=== PATIENT | female | born 1935 | race Caucasian/White ===

== ENCOUNTER 2022-05-15 13:34 | Inpatient (IN) | payer MEDICARE, MEDICAID ==
[~2022-05-15] VITALS: Ht 152.4 cm; Wt 58.1 kg
[2022-05-15 15:40] LABS: BASOPHILS % 0.9 % (0.0-2.0); EOSINOPHILS % 1.2 % (0.0-5.0); HEMATOCRIT. 28.2 % (36.0-48.0); HEMOGLOBIN. 8.9 g/dL (12.0-16.0); MEAN CORPUSCULAR HEMOGLOBIN 27.5 pg (28.0-32.0); MEAN CORPUSCULAR VOLUME 87.4 fL (81.0-99.0); MEAN PLATELET VOLUME 10.5 fl (7.4-10.4); MONOCYTES % 6.1 % (2.0-8.0); NEUTROPHILS % 70.8 % (40.0-76.0); PLATELET 348 x1000/uL (130-400); RED BLOOD CELL COUNT 3.23 mill/uL (4.2-5.4); RED CELL DISTRIBUTION WIDTH 16.5 % (11.6-14.6)
[2022-05-15 15:57] LABS: CHLORIDE 104 mEq/L (98-107)
[2022-05-15 16:07] LABS: ETHANOL BLOOD < 10 mg/dL
[2022-05-15 16:25] LABS: CLARITY URINE CLEAR (CLEAR); COLOR URINE YELLOW (YELLOW); KETONES URINE NEGATIVE (NEGATIVE); LEUKOCYTE ESTERASE URINE NEGATIVE (NEGATIVE); NITRITE URINE NEGATIVE (NEGATIVE); OCCULT BLOOD URINE NEGATIVE (NEGATIVE); PH URINE 5.5 (4.5-8.0); PROTEIN URINE NEGATIVE (NEGATIVE); SPECIFIC GRAVITY URINE 1.009 (1.005-1.030); UROBILINOGEN URINE 0.2 E.U./dL (0.2-1.0)
[2022-05-15 17:06] LABS: *AMPHETAMINES SCREEN URINE NEGATIVE (NEGATIVE); *BARBITURATES SCREEN URINE NEGATIVE (NEGATIVE); *BENZODIAZEPINES SCREEN URINE NEGATIVE (NEGATIVE); *COCAINE SCREEN URINE NEGATIVE (NEGATIVE); CANNABINOID URINE SCREEN NEGATIVE (NEGATIVE); METHADONE URINE SCREEN NEGATIVE (NEGATIVE); OPIATES URINE SCREEN NEGATIVE (NEGATIVE); PHENCYCLIDINE URINE SCREEN NEGATIVE (NEGATIVE)
[2022-05-15] MEDS ORDERED: FUROSEMIDE 100MG/10ML VIAL IV NR (17:06)
[2022-05-15] MEDS ORDERED: DEXTROSE 50% WATER 50ML SYRINGE IV NR (17:15)
[2022-05-15] MEDS ORDERED: SODIUM POLYSTYRENE SULFONATE 15 G/60 ML BOT PO NR (17:15)
[2022-05-15] MEDS ORDERED: CALCIUM CHLORIDE 1GM/10ML SYR IV NR (17:15)
[2022-05-15] MEDS ORDERED: SODIUM BICARBONATE 8.4% 1 MEQ/ML 50ML SYR IV NR (17:15)
[2022-05-15] MEDS ORDERED: ALBUTEROL (0.083%) 2.5MG/3ML NEB HHN NR (17:15)
[2022-05-15] MEDS ORDERED: INSULIN REGULAR (HUMULIN R) 300UNITS/3ML VIAL IV NR (17:15)
[2022-05-15 22:11] LABS: BASOPHILS % 0.2 % (0.0-2.0); EOSINOPHILS % 0.2 % (0.0-5.0); HEMATOCRIT. 23.5 % (36.0-48.0); HEMOGLOBIN. 7.3 g/dL (12.0-16.0); LYMPHOCYTES % 16.3 % (20.0-50.0); MEAN CORPUSCULAR HEMOGLOBIN 26.8 pg (28.0-32.0); MEAN CORPUSCULAR VOLUME 86.5 fL (81.0-99.0); MEAN PLATELET VOLUME 9.9 fl (7.4-10.4); MONOCYTES % 7.8 % (2.0-8.0); NEUTROPHILS % 75.5 % (40.0-76.0); PLATELET 296 x1000/uL (130-400); RED BLOOD CELL COUNT 2.72 mill/uL (4.2-5.4)
[2022-05-15 22:18] LABS: CHLORIDE 104 mEq/L (98-107)
[2022-05-15] MEDS ORDERED: CEFEPIME 1,000 MG in DEXTROSE 5% WATER 50 ML IV SCH (23:45)
[2022-05-15] MEDS ORDERED: ONDANSETRON HCL 4MG/2ML INJ IV PRN (23:45)
[2022-05-16] VITALS (8 sets, daily range): BP systolic 94–150; BP diastolic 43–61
[2022-05-16] MEDS: ACETAMINOPHEN 325MG TABLET PO PRN ×2 (00:54→18:21)
[2022-05-16 04:32] LABS: CHLORIDE 106 mEq/L (98-107)
[2022-05-16 04:47] LABS: CREATINE KINASE 29 IU/L (26-192); CREATINE KINASE MB FRACTION 1.3 ng/mL (0.5-3.6)
[2022-05-16] MEDS: PANTOPRAZOLE SODIUM 40 MG/VIAL IV SCH (09:28)
[2022-05-16] MEDS ORDERED: PREG75CA MT (11:56)
[2022-05-16] MEDS ORDERED: CHOL200059 (11:56)
[2022-05-16] MEDS ORDERED: METF-416 MT (11:56)
[2022-05-16] MEDS ORDERED: ASPI-1497 MT (11:56)
[2022-05-16] MEDS ORDERED: FOLI0.8T42 MT (11:56)
[2022-05-16] MEDS ORDERED: ATOR20TA65 MT (11:56)
[2022-05-16] MEDS ORDERED: MIRT-89 MT (11:56)
[2022-05-16] MEDS ORDERED: METO25TA6 MT (11:56)
[2022-05-16] MEDS ORDERED: PENT400T16 MT (11:56)
[2022-05-16] MEDS ORDERED: PIOG15TA68 MT (11:56)
[2022-05-16] MEDS ORDERED: AMLO5TAB88 MT (11:56)
[2022-05-16] MEDS ORDERED: MELO-106 MT (11:56)
[2022-05-16] MEDS ORDERED: DEXTROSE 50% WATER 50ML SYRINGE IV PRN (14:30)
[2022-05-16] MEDS ORDERED: SODIUM CHLORIDE 0.9% 1,000 ML IV SCH (14:45)
[2022-05-16] MEDS ORDERED: DIPHENHYDRAMINE 25MG CAPSULE PO NR (15:00)
[2022-05-16] MEDS ORDERED: ACETAMINOPHEN 325MG TABLET PO NR (15:00)
[2022-05-16] MEDS: CEFEPIME 1,000 MG in DEXTROSE 5% WATER 50 ML IV SCH (15:49)
[2022-05-16] MEDS: DEXT 5%/0.9% NACL 1,000 ML IV SCH (15:50)
[2022-05-16 17:15] LABS: CREATINE KINASE MB FRACTION 1.3 ng/mL (0.5-3.6)
[2022-05-16] MEDS: BLOOD SUGAR DIAGNOSTIC STRIP TEST SCH ×2 (17:45→21:09)
[2022-05-16] MEDS: INSULIN LISPRO 100 UNITS/ML SUBCUT SCH ×2 (17:45→21:14)
[2022-05-16] MEDS ORDERED: ACETAMINOPHEN 500MG TABLET PO NR (21:37)
[2022-05-17] VITALS (8 sets, daily range): BP systolic 127–165; BP diastolic 42–88
[2022-05-17] MEDS: DEXT 5%/0.9% NACL 1,000 ML IV SCH ×2 (02:00→11:43)
[2022-05-17] MEDS: CEFEPIME 1,000 MG in DEXTROSE 5% WATER 50 ML IV SCH ×2 (05:02→17:29)
[2022-05-17 06:37] LABS: BASOPHILS % 0.6 % (0.0-2.0); EOSINOPHILS % 3.3 % (0.0-5.0); HEMATOCRIT. 28.4 % (36.0-48.0); HEMOGLOBIN. 9.3 g/dL (12.0-16.0); LYMPHOCYTES % 31.4 % (20.0-50.0); MEAN CORPUSCULAR HEMOGLOBIN 28.2 pg (28.0-32.0); MEAN CORPUSCULAR VOLUME 86.6 fL (81.0-99.0); MEAN PLATELET VOLUME 9.9 fl (7.4-10.4); MONOCYTES % 8.4 % (2.0-8.0); NEUTROPHILS % 56.3 % (40.0-76.0); PLATELET 245 x1000/uL (130-400); RED BLOOD CELL COUNT 3.28 mill/uL (4.2-5.4); RED CELL DISTRIBUTION WIDTH 16.3 % (11.6-14.6)
[2022-05-17] MEDS: BLOOD SUGAR DIAGNOSTIC STRIP TEST SCH ×4 (06:47→20:49)
[2022-05-17] MEDS: INSULIN LISPRO 100 UNITS/ML SUBCUT SCH ×4 (08:10→20:50)
[2022-05-17] MEDS: PANTOPRAZOLE SODIUM 40 MG/VIAL IV SCH (08:34)
[2022-05-17] MEDS: ENOXAPARIN 30MG/0.3ML SYR SUBCUT SCH (12:02)
[2022-05-17] MEDS: ACETAMINOPHEN 325MG TABLET PO PRN (20:48)
[2022-05-17] MEDS: METOPROLOL TARTRATE 25MG TABLET PO SCH (20:49)
[2022-05-18] VITALS: BP 146/51
[2022-05-18 04:00] VITALS: BP 155/58
[2022-05-18] MEDS: CEFEPIME 1,000 MG in DEXTROSE 5% WATER 50 ML IV SCH ×2 (04:51→17:32)
[2022-05-18] MEDS: ACETAMINOPHEN 325MG TABLET PO PRN (05:39)
[2022-05-18 06:20] LABS: BASOPHILS % 0.6 % (0.0-2.0); EOSINOPHILS % 5.5 % (0.0-5.0); HEMOGLOBIN. 9.9 g/dL (12.0-16.0); LYMPHOCYTES % 31.3 % (20.0-50.0); MEAN CORPUSCULAR HEMOGLOBIN 28.4 pg (28.0-32.0); MEAN CORPUSCULAR VOLUME 86.3 fL (81.0-99.0); MEAN PLATELET VOLUME 10.1 fl (7.4-10.4); NEUTROPHILS % 53.6 % (40.0-76.0); PLATELET 224 x1000/uL (130-400); RED BLOOD CELL COUNT 3.47 mill/uL (4.2-5.4); RED CELL DISTRIBUTION WIDTH 15.9 % (11.6-14.6)
[2022-05-18] MEDS: BLOOD SUGAR DIAGNOSTIC STRIP TEST SCH ×4 (06:37→20:53)
[2022-05-18] MEDS: INSULIN LISPRO 100 UNITS/ML SUBCUT SCH ×4 (06:38→20:53)
[2022-05-18 08:00] VITALS: BP 132/72
[2022-05-18 08:54] LABS: CHLORIDE 106 mEq/L (98-107)
[2022-05-18] MEDS: PANTOPRAZOLE SODIUM 40 MG/VIAL IV SCH (09:10)
[2022-05-18] MEDS: MEMANTINE HCL 10MG TABLET PO SCH ×2 (09:10→20:50)
[2022-05-18] MEDS: METOPROLOL TARTRATE 25MG TABLET PO SCH ×2 (09:10→20:50)
[2022-05-18] MEDS: ENOXAPARIN 30MG/0.3ML SYR SUBCUT SCH (11:52)
[2022-05-18 12:00] VITALS: BP 154/53
[2022-05-18] MEDS ORDERED: CIPR-264 MT (12:08)
[2022-05-18] MEDS ORDERED: MEMA10TA2 PO (12:08)
[2022-05-18 16:00] VITALS: BP 140/67
[2022-05-18] MEDS: MEGESTROL ACETATE 40MG TABLET PO SCH (17:26)
[2022-05-18] MEDS: SODIUM CHLORIDE 0.9% 1,000 ML IV SCH (17:27)
[2022-05-18 20:00] VITALS: BP 149/54
[2022-05-18] MEDS ORDERED: MIRTAZAPINE 15MG TABLET PO SCH (21:00)
[2022-05-18] MEDS ORDERED: AZITHROMYCIN 500 MG in DEXT 5% WATER 250 ML IV SCH (22:30)
[2022-05-19] VITALS: BP 149/54
[2022-05-19 04:00] VITALS: BP_SYST 151; BP_SYST 161; BP_DIAS 56; BP_DIAS 66
[2022-05-19] MEDS: CEFEPIME 1,000 MG in DEXTROSE 5% WATER 50 ML IV SCH (05:38)
[2022-05-19] MEDS: SODIUM CHLORIDE 0.9% 1,000 ML IV SCH (05:50)
[2022-05-19] MEDS: BLOOD SUGAR DIAGNOSTIC STRIP TEST SCH ×3 (06:50→17:06)
[2022-05-19] MEDS: INSULIN LISPRO 100 UNITS/ML SUBCUT SCH ×3 (06:50→17:07)
[2022-05-19 08:00] VITALS: BP 142/56
[2022-05-19] MEDS: MEGESTROL ACETATE 40MG TABLET PO SCH ×3 (08:48→17:09)
[2022-05-19] MEDS: MEMANTINE HCL 10MG TABLET PO SCH (08:48)
[2022-05-19] MEDS: METOPROLOL TARTRATE 25MG TABLET PO SCH (08:49)
[2022-05-19] MEDS: ENOXAPARIN 30MG/0.3ML SYR SUBCUT SCH (08:50)
[2022-05-19] MEDS: PANTOPRAZOLE SODIUM 40 MG/VIAL IV SCH (08:50)
[2022-05-19] MEDS ORDERED: AZITHROMYCIN 500MG in DEXTROSE 5% WATER 250ML IV SCH (09:00)
[2022-05-19] MEDS ORDERED: MEGE40TA5 MT (11:10)
[2022-05-19] MEDS ORDERED: MIRT-118 MT (11:11)
[2022-05-19 11:52] VITALS: BP 137/50
[2022-05-19 11:55] VITALS: BP 137/50
[2022-05-19 16:00] VITALS: BP 132/96
== END 2022-05-19 18:15 | disposition hospice, home (50) | DRG 871 ==
LOC: ER 13:57 → MICUSO 17:58 → 7WST 05-16
PROVIDERS: ADMIT Internal Medicine; ATTEND Internal Medicine
PROC: 30233N1 Transfusion of Nonautologous Red Blood Cells into Peripheral Vein, Percutaneous Approach (ICD-10-PCS; principal; 2022-05-16)
DX: A41.9 Sepsis, unspecified organism (principal); G93.41 Metabolic encephalopathy; J18.9 Pneumonia, unspecified organism; D64.9 Anemia, unspecified; R62.7 Adult failure to thrive; I10 Essential (primary) hypertension; E86.1 Hypovolemia; Z20.822 Contact with and (suspected) exposure to COVID-19; G30.9 Alzheimer's disease, unspecified; E87.5 Hyperkalemia; F02.80 Dementia in other diseases classified elsewhere, unspecified severity, without behavioral disturbance, psychotic disturbance, mood disturbance, and anxiety; Z79.899 Other long term (current) drug therapy; Z86.73 Personal history of transient ischemic attack (TIA), and cerebral infarction without residual deficits; Z68.25 Body mass index [BMI] 25.0-25.9, adult; E11.65 Type 2 diabetes mellitus with hyperglycemia
CPT/HCPCS: 36415; 71045; 80048; 80053; 80305; 80320; 81003; 82550; 82553; 82962; 83036; 83540; 83550; 83605; 84145; 84484; 85025; 86850; 86900; 86920; 87426; 93005; 93306; 93970; 94640; 97162; 99291; C9113; J0456; J0692; J1650; J1815; J1940; J3490; J7030; J7042; J7060; P9016; Q0163; A4315; G0480

== ENCOUNTER 2024-05-17 17:11 | Inpatient (IN) | payer MEDICARE, MEDICAID ==
[~2024-05-17] VITALS: Ht 137.2 cm; Wt 53.5 kg
[~2024-05-17 17:11] MED LIST: ALPR0.25 MT; AMLO5TAB88 PO; APIX2.5T PO; ASPI-1497 MT; ATOR20TA65 MT; CEPH500C2 MT; CHOL200059; FOLI0.8T42 MT; LINA5TAB MT; MEMA10TA20 MT; METO5TAB2 PO
[2024-05-17 19:08] LABS: CLARITY URINE CLEAR (CLEAR); COLOR URINE YELLOW (YELLOW); GLUCOSE URINE NEGATIVE (NEGATIVE); KETONES URINE NEGATIVE (NEGATIVE); LEUKOCYTE ESTERASE URINE 2+ (NEGATIVE); NITRITE URINE NEGATIVE (NEGATIVE); OCCULT BLOOD URINE NEGATIVE (NEGATIVE); PH URINE 5.5 (4.5-8.0); PROTEIN URINE TRACE (NEGATIVE); SPECIFIC GRAVITY URINE 1.017 (1.005-1.030); UROBILINOGEN URINE 0.2 E.U./dL (0.2-1.0)
[2024-05-17 19:22] LABS: BACTERIA URINE 1+; RBC URINE 0-2 /hpf (0-2); SQUAMOUS EPITHELIAL CELL URINE 1+ /lpf (RARE/1+); YEAST URINE 2+
[2024-05-17 19:27] LABS: *AMPHETAMINES SCREEN URINE NEGATIVE (NEGATIVE); *BARBITURATES SCREEN URINE NEGATIVE (NEGATIVE); *BENZODIAZEPINES SCREEN URINE PRESUMPTIVE POSITIVE (NEGATIVE); *COCAINE SCREEN URINE NEGATIVE (NEGATIVE); CANNABINOID URINE SCREEN NEGATIVE (NEGATIVE); ECSTASY MDMA SCREEN URINE NEGATIVE (NEGATIVE); METHADONE URINE SCREEN NEGATIVE (NEGATIVE); OPIATES URINE SCREEN NEGATIVE (NEGATIVE); PHENCYCLIDINE URINE SCREEN NEGATIVE (NEGATIVE)
[2024-05-17] MEDS ORDERED: CEFEPIME 1GM IN DEXT 5% 50ML IV ONE (19:30)
[2024-05-17 20:13] LABS: BASOPHILS % 0.5 % (0.0-2.0); EOSINOPHILS % 1.4 % (0.0-5.0); HEMATOCRIT. 28.1 % (36.0-48.0); HEMOGLOBIN. 8.8 g/dL (12.0-16.0); LYMPHOCYTES % 14.6 % (20.0-50.0); MEAN CORPUSCULAR HEMOGLOBIN 26.1 pg (28.0-32.0); MEAN CORPUSCULAR HGB CONC 31.3 g/dL (31.0-37.0); MEAN CORPUSCULAR VOLUME 83.4 fL (81.0-99.0); MEAN PLATELET VOLUME 10.4 fl (7.4-10.4); MONOCYTES % 9.3 % (2.0-8.0); NEUTROPHILS % 74.2 % (40.0-76.0); PLATELET 317 x1000/uL (130-400); RED BLOOD CELL COUNT 3.37 mill/uL (4.2-5.4); RED CELL DISTRIBUTION WIDTH 18.5 % (11.6-14.6); WHITE BLOOD COUNT 15.6 x1000/uL (4.5-11.0)
[2024-05-17] MEDS: CEFEPIME 1GM/50ML 50 ML IV NR (20:15)
[2024-05-17 20:23] LABS: CHLORIDE 97 mEq/L (98-107); POTASSIUM 3.5 mEq/L (3.5-5.1); SODIUM 131 mEq/L (136-145)
[2024-05-17 20:24] LABS: CALCIUM 10.2 mg/dL (8.7-10.4); CARBON DIOXIDE 25 mEq/L (21-32)
[2024-05-17 20:29] LABS: CREATININE 0.8 mg/dL (0.6-1.0); GLUCOSE 168 mg/dL (70-105); UREA NITROGEN BLOOD 33 mg/dL (9-23)
[2024-05-17 20:30] LABS: ALANINE AMINOTRANSFERASE 12 IU/L (10-49); ALBUMIN 3.6 g/dL (3.2-4.8); AMMONIA < 17 uMol/L (<32); ASPARTATE AMINOTRANSFERASE 17 IU/L (<34); BILIRUBIN DIRECT 0.1 mg/dL (<=3.0); BILIRUBIN TOTAL 0.3 mg/dL (0.1-1.0); ETHANOL BLOOD < 10 mg/dL (<10); PROTEIN TOTAL 6.7 g/dL (6.0-8.3)
[2024-05-17 20:31] LABS: ACETAMINOPHEN < 2 ug/mL (10-30)
[2024-05-17 20:33] LABS: THYROID STIMULATING HORMONE 2.06 uIU/mL (0.55-4.78)
[2024-05-17] MEDS: AZITHROMYCIN 500MG/250ML 250 ML IV NR (20:33)
[2024-05-17 20:46] LABS: TROPONIN I HIGH SENSITIVITY 278 ng/L (3.0-34)
[2024-05-17] MEDS ORDERED: ACETAMINOPHEN 325MG TABLET PO PRN (21:45)
[2024-05-17] MEDS ORDERED: DOCUSATE SODIUM 100MG CAPSULE PO PRN (21:45)
[2024-05-17] MEDS ORDERED: ONDANSETRON HCL 4MG/2ML INJ IV PRN (21:45)
[2024-05-17] MEDS ORDERED: IPRATROPIUM/ALBUTEROL 0.5-3(2.5)MG/3ML NEB HHN PRN (21:45)
[2024-05-17] MEDS ORDERED: MAGNESIUM/ALUMINUM HYDROXIDE/SIMETHICONE 30ML UDC PO PRN (21:45)
[2024-05-17] MEDS: SODIUM CHLORIDE 0.9% (SEPSIS BOLUS) IV NR (21:52)
[2024-05-17] MEDS: VANCOMYCIN 1G PREMIX 200 ML IV NR (21:52)
[2024-05-17] MEDS: ASPIRIN 300MG SUPP PR NR (22:26)
[2024-05-17] MEDS: ENOXAPARIN 60MG/0.6ML SYR SUBCUT SCH (22:26)
[2024-05-18] MEDS: SODIUM CHLORIDE 0.9% 1,000 ML IV SCH (03:45)
[2024-05-18] MEDS: CEFTRIAXONE 1GM/50ML 50 ML IV SCH (08:18)
[2024-05-18] MEDS: AZITHROMYCIN 500 MG in SODIUM CHLORIDE 0.9% 250 ML IV SCH (09:00)
[2024-05-18 16:05] VITALS: BP 137/72; PULSE 92; RESP 19; TEMP 36.2
[2024-05-18 16:22] VITALS: BP 137/72; PULSE 92; RESP 19; TEMP 36.2; O2SAT 100
[2024-05-18] MEDS ORDERED: METR-167 PO (19:23)
[2024-05-18] MEDS ORDERED: VANC250C19 PO (19:24)
[2024-05-18] MEDS ORDERED: METF-416 PO (19:24)
[2024-05-18 20:20] VITALS: BP 149/62; PULSE 99; RESP 18; TEMP 36.4; O2SAT 97
[2024-05-19 00:24] VITALS: BP 137/74; PULSE 90; RESP 17; TEMP 36.4; O2SAT 97
[2024-05-19 04:26] VITALS: BP 131/53; PULSE 98; RESP 17; TEMP 36.1; O2SAT 96
[2024-05-19] MEDS: CEFTRIAXONE 1GM/50ML 50 ML IV SCH (07:54)
[2024-05-19 08:10] VITALS: BP 149/63; PULSE 98; RESP 18; TEMP 36.6; O2SAT 100
[2024-05-19] MEDS: AZITHROMYCIN 500MG/250ML 250 ML IV SCH (09:14)
[2024-05-19 11:18] VITALS: BP 142/64; PULSE 86; RESP 19; TEMP 36.2; O2SAT 100
[2024-05-19] MEDS: ALPRAZOLAM 0.25 MG TABLET PO PRN (15:19)
[2024-05-19 15:47] VITALS: BP 115/52; PULSE 91; RESP 19; TEMP 36.7; O2SAT 100
[2024-05-19] MEDS: VANCOMYCIN 1G PREMIX 200 ML IV NR (16:21)
[2024-05-19 20:00] VITALS: BP 134/62; PULSE 94; RESP 18; TEMP 36.2; O2SAT 98
[2024-05-20] VITALS: BP 132/69; PULSE 95; RESP 18; TEMP 36.3; O2SAT 97
[2024-05-20 04:00] VITALS: BP 131/58; PULSE 89; RESP 18; TEMP 36.3; O2SAT 97
[2024-05-20 08:00] VITALS: BP 133/60; PULSE 89; RESP 18; TEMP 36.6; O2SAT 99
[2024-05-20 12:00] VITALS: BP 119/56; PULSE 94; RESP 18; TEMP 36.4; O2SAT 100
[2024-05-20] MEDS: VANCOMYCIN 500MG/100ML IV SCH (13:05)
[2024-05-20 16:00] VITALS: BP 136/48; PULSE 100; RESP 20; TEMP 36.3; O2SAT 99
[2024-05-20 17:33] LABS: CARBON DIOXIDE 23 mEq/L (21-32); CHLORIDE 111 mEq/L (98-107); POTASSIUM 3.3 mEq/L (3.5-5.1); SODIUM 140 mEq/L (136-145)
[2024-05-20 17:34] LABS: CALCIUM 8.2 mg/dL (8.7-10.4)
[2024-05-20 17:39] LABS: CREATININE 0.7 mg/dL (0.6-1.0); GLUCOSE 317 mg/dL (70-105); UREA NITROGEN BLOOD 13 mg/dL (9-23)
[2024-05-20 18:40] LABS: MEAN CORPUSCULAR HEMOGLOBIN 25.9 pg (28.0-32.0); MEAN CORPUSCULAR VOLUME 83.7 fL (81.0-99.0); MEAN PLATELET VOLUME 9.8 fl (7.4-10.4); PLATELET 295 x1000/uL (130-400); RED BLOOD CELL COUNT 2.64 mill/uL (4.2-5.4); RED CELL DISTRIBUTION WIDTH 19.2 % (11.6-14.6); WHITE BLOOD COUNT 9.5 x1000/uL (4.5-11.0)
[2024-05-20 18:44] LABS: DIFFERENTIAL COMMENT 1
[2024-05-20 18:49] LABS: HEMATOCRIT. 22.1 % (36.0-48.0); HEMOGLOBIN. 6.9 g/dL (12.0-16.0)
[2024-05-20] MEDS: MAGNESIUM 4 G PREMIX 100 ML IV NR (18:49)
[2024-05-20 20:00] VITALS: BP 131/44; PULSE 106; RESP 19; TEMP 37.1; O2SAT 100
[2024-05-20] MEDS: POTASSIUM CHLORIDE 20 MEQ in DEXT 5% WATER 100 ML IV SCH (20:01)
[2024-05-20 21:01] LABS: ANISOCYTOSIS 1+; HYPOCHROMASIA 1+; MICROCYTOSIS 1+; PLATELET ESTIMATE NORMAL
[2024-05-21] VITALS (14 sets, daily range): BP systolic 113–178; BP diastolic 43–87; PULSE 65–148; RESP 14–26; TEMP 36.1–38.7; O2SAT 94–100
[2024-05-21 00:16] LABS: IRON 17 ug/dL (50-170)
[2024-05-21 00:19] LABS: TOTAL IRON BINDING CAPACITY 248 ug/dl (250-425)
[2024-05-21] MEDS: AMLODIPINE 5MG TABLET PO SCH (00:43)
[2024-05-21 07:32] LABS: CALCIUM 8.4 mg/dL (8.7-10.4); CARBON DIOXIDE 26 mEq/L (21-32); CHLORIDE 110 mEq/L (98-107); POTASSIUM 4.3 mEq/L (3.5-5.1); SODIUM 144 mEq/L (136-145)
[2024-05-21 07:37] LABS: CREATININE 0.7 mg/dL (0.6-1.0)
[2024-05-21 07:38] LABS: UREA NITROGEN BLOOD 13 mg/dL (9-23)
[2024-05-21 07:47] LABS: HEMOGLOBIN. 10.2 g/dL (12.0-16.0); MEAN CORPUSCULAR HEMOGLOBIN 27.1 pg (28.0-32.0); MEAN CORPUSCULAR HGB CONC 30.8 g/dL (31.0-37.0); PLATELET 315 x1000/uL (130-400); RED BLOOD CELL COUNT 3.76 mill/uL (4.2-5.4); RED CELL DISTRIBUTION WIDTH 18.4 % (11.6-14.6); WHITE BLOOD COUNT 13.9 x1000/uL (4.5-11.0)
[2024-05-21 07:58] LABS: DIFFERENTIAL COMMENT 1
[2024-05-21] MEDS: ATORVASTATIN CALCIUM 20MG TABLET GT SCH (08:22)
[2024-05-21 08:36] LABS: GLUCOSE 403 mg/dL (70-105)
[2024-05-21] MEDS ORDERED: METO-539 MT (10:47)
[2024-05-21] MEDS ORDERED: DEXTROSE 50% WATER 50ML SYRINGE IV PRN (11:00)
[2024-05-21] MEDS: INSULIN LISPRO 100 UNITS/ML SUBCUT SCH (11:35)
[2024-05-21] MEDS: BLOOD SUGAR DIAGNOSTIC STRIP TEST SCH (11:36)
[2024-05-21] MEDS: METOPROLOL TARTRATE 50MG TABLET PO SCH (11:36)
[2024-05-21] MEDS: METOPROLOL TARTRATE 25MG TABLET PO SCH (16:15)
[2024-05-21 16:53] LABS: ANISOCYTOSIS 1+; PLATELET ESTIMATE NORMAL
[2024-05-21] MEDS: VANCOMYCIN 750MG PREMIX 150 ML IV SCH (17:22)
[2024-05-21] MEDS: IPRATROPIUM/ALBUTEROL 0.5-3(2.5)MG/3ML NEB HHN SCH (21:31)
[2024-05-21] MEDS: ACETYLCYSTEINE 200MG/ML 20% VIAL 4ML INH SCH (21:31)
[2024-05-21] MEDS: ACETAMINOPHEN 650MG/20.3ML UDC GT PRN (21:45)
[2024-05-22] VITALS (10 sets, daily range): BP systolic 118–161; BP diastolic 55–89; PULSE 68–100; RESP 15–20; TEMP 35.7–38.2; O2SAT 95–99
[2024-05-22] MEDS: DOXYCYCLINE 100MG/100ML 100 ML IV SCH (06:00)
[2024-05-22 07:10] LABS: CARBON DIOXIDE 25 mEq/L (21-32); CHLORIDE 111 mEq/L (98-107); POTASSIUM 3.8 mEq/L (3.5-5.1); SODIUM 147 mEq/L (136-145)
[2024-05-22 07:11] LABS: CALCIUM 9.2 mg/dL (8.7-10.4)
[2024-05-22 07:15] LABS: CREATININE 0.7 mg/dL (0.6-1.0)
[2024-05-22 07:16] LABS: GLUCOSE 215 mg/dL (70-105); UREA NITROGEN BLOOD 15 mg/dL (9-23)
[2024-05-22 08:15] LABS: BASOPHILS % 0.2 % (0.0-2.0); EOSINOPHILS % 0.1 % (0.0-5.0); HEMATOCRIT. 29.8 % (36.0-48.0); HEMOGLOBIN. 9.6 g/dL (12.0-16.0); LYMPHOCYTES % 15.2 % (20.0-50.0); MEAN CORPUSCULAR HEMOGLOBIN 27.8 pg (28.0-32.0); MEAN CORPUSCULAR HGB CONC 32.2 g/dL (31.0-37.0); MEAN CORPUSCULAR VOLUME 86.2 fL (81.0-99.0); MONOCYTES % 7.5 % (2.0-8.0); PLATELET 280 x1000/uL (130-400); RED BLOOD CELL COUNT 3.46 mill/uL (4.2-5.4); RED CELL DISTRIBUTION WIDTH 18.5 % (11.6-14.6); WHITE BLOOD COUNT 12.3 x1000/uL (4.5-11.0)
[2024-05-22] MEDS ORDERED: LIDOCAINE HCL 1% 10 MG/ML 10ML VIAL ONE ×2 (08:42→09:39)
[2024-05-22] MEDS ORDERED: MONTELUKAST SODIUM 10MG TABLET PO SCH (17:00)
[2024-05-23] VITALS (12 sets, daily range): BP systolic 125–152; BP diastolic 38–80; PULSE 83–115; RESP 18–20; TEMP 35.2–37.3; O2SAT 93–98
[2024-05-23 06:37] LABS: BASOPHILS % 0.4 % (0.0-2.0); EOSINOPHILS % 0.2 % (0.0-5.0); HEMATOCRIT. 29.2 % (36.0-48.0); HEMOGLOBIN. 9.4 g/dL (12.0-16.0); LYMPHOCYTES % 12.4 % (20.0-50.0); MEAN CORPUSCULAR HEMOGLOBIN 27.4 pg (28.0-32.0); MEAN CORPUSCULAR HGB CONC 32.1 g/dL (31.0-37.0); MEAN CORPUSCULAR VOLUME 85.2 fL (81.0-99.0); MEAN PLATELET VOLUME 9.9 fl (7.4-10.4); MONOCYTES % 6.3 % (2.0-8.0); NEUTROPHILS % 80.7 % (40.0-76.0); PLATELET 253 x1000/uL (130-400); RED BLOOD CELL COUNT 3.43 mill/uL (4.2-5.4); RED CELL DISTRIBUTION WIDTH 18.9 % (11.6-14.6); WHITE BLOOD COUNT 10.1 x1000/uL (4.5-11.0)
[2024-05-23 06:58] LABS: CHLORIDE 110 mEq/L (98-107); POTASSIUM 3.7 mEq/L (3.5-5.1); SODIUM 146 mEq/L (136-145)
[2024-05-23 06:59] LABS: CALCIUM 9.1 mg/dL (8.7-10.4); CARBON DIOXIDE 25 mEq/L (21-32)
[2024-05-23 07:04] LABS: CREATININE 0.6 mg/dL (0.6-1.0); GLUCOSE 244 mg/dL (70-105); UREA NITROGEN BLOOD 17 mg/dL (9-23)
[2024-05-23 15:33] LABS: BG BASE EXCESS 1.8 mmol/L (-2.0-3.0); BG CARBOXYHEMOGLOBIN 0.4 % (0.5-1.5); BG DEOXYHEMOGLOBIN 11.5 % (0.0-5.0); BG FRACTION INSPIRED OXYGEN 21; BG HCO3 ACT 24.5 mmol/L (21.0-28.0); BG METHEMOGLOBIN 0.3 % (0.5-1.5); BG OXYGEN SATURATION 88.4 % (94.0-98.0); BG OXYHEMOGLOBIN 87.8 % (94.0-98.0); BG PCO2 31.3 mmHg (32.0-45.0); BG PH 7.511 (7.350-7.450); BG PO2 52.5 mmHg (83.0-108.0); BG SAMPLE SITE RIGHT RADIAL; BG TOTAL HEMOGLOBIN 9.7 g/dL (12.0-16.0); BG VENT MODE ROOM AIR
[2024-05-23] MEDS: ATORVASTATIN CALCIUM 40MG TABLET GT SCH (21:59)
[2024-05-23] MEDS: METOPROLOL TARTRATE 50MG TABLET PO SCH (22:00)
[2024-05-24] VITALS (12 sets, daily range): BP systolic 100–177; BP diastolic 48–86; PULSE 74–103; RESP 16–22; TEMP 35.9–37.6; O2SAT 92–98
[2024-05-24] MEDS: CLONIDINE 0.1MG TABLET PO PRN (00:36)
[2024-05-24] MEDS: GUAIFENESIN 200MG/10ML SUGAR FREE UDC PO PRN (00:36)
[2024-05-24] MEDS: ACETAMINOPHEN 325MG TABLET PO PRN (00:37)
[2024-05-24] MEDS: DEXAMETHASONE 4MG/ML 1ML VIAL IV SCH (08:55)
[2024-05-24] MEDS: DOXYCYCLINE HYCLATE 100MG CAPSULE PO SCH (21:05)
[2024-05-25] VITALS (13 sets, daily range): BP systolic 98–153; BP diastolic 39–101; PULSE 84–97; RESP 16–24; TEMP 35.7–36.7; O2SAT 94–100
[2024-05-26] VITALS (8 sets, daily range): BP systolic 92–124; BP diastolic 38–60; PULSE 78–123; RESP 16–22; TEMP 36.1–37.2; O2SAT 95–100
[2024-05-26] MEDS ORDERED: PANT40TA51 MT (10:06)
[2024-05-26] MEDS ORDERED: DEXA6TAB MT (10:06)
[2024-05-26] MEDS: MENTHOL/LANOLIN/CALAMINE/ZN OX OINT 71GM TOP SCH (12:20)
== END 2024-05-26 18:00 | disposition hospice, home (50) | DRG 871 ==
LOC: ER 17:11 → EDBEDREQ 17:57 → MICUSO 19:20 → EDBEDREQTM 19:37 → EDBEDREQ 19:37 → 7WST 05-18 15:58
PROVIDERS: ADMIT Internal Medicine; ATTEND Internal Medicine
PROC: 30233N1 Transfusion of Nonautologous Red Blood Cells into Peripheral Vein, Percutaneous Approach (ICD-10-PCS; 2024-05-21)
PROC: 02HV33Z Insertion of Infusion Device into Superior Vena Cava, Percutaneous Approach (ICD-10-PCS; principal; 2024-05-22)
PROC: B548ZZA Ultrasonography of Superior Vena Cava, Guidance (ICD-10-PCS; 2024-05-22)
DX: A41.1 Sepsis due to other specified staphylococcus (principal); G92.8 Other toxic encephalopathy; U07.1 COVID-19; I21.4 Non-ST elevation (NSTEMI) myocardial infarction; J96.00 Acute respiratory failure, unspecified whether with hypoxia or hypercapnia; J12.82 Pneumonia due to coronavirus disease 2019; J69.0 Pneumonitis due to inhalation of food and vomit; N39.0 Urinary tract infection, site not specified; I69.354 Hemiplegia and hemiparesis following cerebral infarction affecting left non-dominant side; Z51.5 Encounter for palliative care; E11.9 Type 2 diabetes mellitus without complications; E78.00 Pure hypercholesterolemia, unspecified; F03.90 Unspecified dementia, unspecified severity, without behavioral disturbance, psychotic disturbance, mood disturbance, and anxiety; I10 Essential (primary) hypertension; I48.91 Unspecified atrial fibrillation; D64.9 Anemia, unspecified; S30.0XXA Contusion of lower back and pelvis, initial encounter; I05.0 Rheumatic mitral stenosis; R13.10 Dysphagia, unspecified; Z78.9 Other specified health status; Z91.81 History of falling; X58.XXXA Exposure to other specified factors, initial encounter; Y93.89 Activity, other specified; Y92.89 Other specified places as the place of occurrence of the external cause; Y99.8 Other external cause status
CPT/HCPCS: 36415; 36573; 36600; 70551; 71045; 80048; 80076; 80202; 80305; 80307; 80320; 80329; 81003; 82140; 82375; 82550; 82553; 82805; 82962; 83540; 83550; 83605; 83735; 83880; 84145; 84443; 84484; 85025; 86850; 86900; 86920; 87015; 87045; 87426; 87427; 87449; 87493; 89055; 93005; 93306; 93970; 94070; 94640; 94664; 94760; 98960; 99291; J0456; J0692; J0696; J1100; J1650; J1815; J2003; J3370; J3475; J3480; J3490; J7050; J7060; J7608; P9016; G0480